=== PATIENT | male | born 1980 | race Caucasian/White ===

== ENCOUNTER 2025-05-17 23:29 | Emergency (ER) | payer MEDICARE ==
[~2025-05-17] VITALS: Ht 167.6 cm; Wt 87.0 kg
[2025-05-17 23:46] VITALS: O2SAT 100
[2025-05-18 00:30] LABS: BASOPHILS % 0.7 % (0.0-2.0); EOSINOPHILS % 0.8 % (0.0-5.0); HEMATOCRIT. 40.8 % (42.0-52.0); HEMOGLOBIN. 13.4 g/dL (14.0-18.0); LYMPHOCYTES % 46.3 % (20.0-50.0); MEAN PLATELET VOLUME 9.1 fl (7.4-10.4); MONOCYTES % 8.7 % (2.0-8.0); NEUTROPHILS % 43.5 % (40.0-76.0); PLATELET 171 x1000/uL (130-400); RED BLOOD CELL COUNT 4.60 mill/uL (4.7-6.1); RED CELL DISTRIBUTION WIDTH 14.7 % (11.6-14.6)
[2025-05-18 00:41] LABS: CLARITY URINE CLEAR (CLEAR); COLOR URINE YELLOW (YELLOW); GLUCOSE URINE NEGATIVE (NEGATIVE); KETONES URINE NEGATIVE (NEGATIVE); LEUKOCYTE ESTERASE URINE NEGATIVE (NEGATIVE); NITRITE URINE NEGATIVE (NEGATIVE); OCCULT BLOOD URINE NEGATIVE (NEGATIVE); PH URINE 6.0 (4.5-8.0); PROTEIN URINE NEGATIVE (NEGATIVE); SPECIFIC GRAVITY URINE 1.029 (1.005-1.030); UROBILINOGEN URINE 1.0 E.U./dL (0.2-1.0)
[2025-05-18 00:42] LABS: CREATININE 0.9 mg/dL (0.6-1.3)
[2025-05-18 00:43] LABS: UREA NITROGEN BLOOD 12 mg/dL (9-23)
[2025-05-18 00:44] LABS: TROPONIN I HIGH SENSITIVITY < 4 ng/L (3.0-53)
[2025-05-18] MEDS: KETOROLAC 15MG/ML VIAL IM ONE (01:19)
[2025-05-18] MEDS ORDERED: IBUP-1455 MT (01:56)
[2025-05-18 02:23] VITALS: BP 139/70; PULSE 66; RESP 18; TEMP 37; O2SAT 100
== END 2025-05-18 02:25 | disposition home or self-care (01) ==
LOC: ER 23:29
DX: M54.12 Radiculopathy, cervical region (principal); M25.512 Pain in left shoulder; R51.9 Headache, unspecified
CPT/HCPCS: 99285; 71045; 73030; 93005; 80048; 81003; 85025; 84484; 36415; 96372; J1885